=== PATIENT | male | born 1965 | race Two or more races ===

== ENCOUNTER 2024-09-29 10:03 | Emergency (ER) | payer MEDICAID, SELFPAY ==
[2024-09-29 10:05] VITALS: BMI 38.0
[2024-09-29 10:25] VITALS: BP 164/76; PULSE 68; RESP 18; TEMP 36.8; O2SAT 99
--- NOTE | 2024-09-29 10:37 | XR_ITS ---
Examination: Left elbow 3 views Technique: Elbow AP, oblique, lateral 3 views Exam date and time: September 29, 2024 1112 hrs. Indications: Injury to the elbow 3 weeks ago with elbow pain. Findings: No acute fracture No dislocation No foreign body Impression: No acute fracture.
--- NOTE | 2024-09-29 10:37 | XR_ITS ---
Examination: Lumbar spine 3 views Technique one AP lateral coned lateral lower lumbar spine 3 views Exam date and time: September 29, 2024 11:15 AM Indications: Low back pain beginning 3 weeks ago Findings: Adequate alignment lumbar vertebral bodies No lumbar fracture Early degenerative disc disease L5-S1 Mild lumbar spondylosis Impression: Early degenerative disc disease L5-S1
--- NOTE | 2024-09-29 10:38 | PD.EDBACK ---
ED Back Injury Pain RME/HPI General Chief Complaint: Back Pain/Injury Stated Complaint: flank pain right x 2 weeks, left arm pain Time Seen by Provider: 09/29/24 10:37 Arrival date/time: 09/29/24 10:03 RME / HPI RME / HPI Narrative: 5-year-old patient presents emergency department with complaint of bilateral flank pain and back pain x 2 weeks. Patient also complains of left elbow pain. 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 Patient states he has pain with flexion of the left elbow. He also states pain to his lower back is worse with flexion and extension of his lumbar spine. He denies numbness and tingling to distal extremity. Related Data Home Medications ?Medication ?Instructions ?Recorded ?Confirmed lisinopril 10 mg tablet 10 mg PO QDAY 11/10/18 02/18/19 Previous Rx's ?Medication ?Instructions ?Recorded dicyclomine 10 mg capsule 10 mg PO BID PRN pain #30 caps 04/23/22 pantoprazole 40 mg tablet,delayed 40 mg PO QDAY #30 tabs 04/23/22 release (Protonix) cyclobenzaprine 10 mg tablet 10 mg PO TID PRN muscle spasm #20 05/02/24 tabs ibuprofen 800 mg tablet 800 mg PO TID PRN pain #30 tabs 05/02/24 ibuprofen 800 mg tablet 800 mg PO TID #30 tabs 09/29/24 Allergies Allergy/AdvReac Type Severity Reaction Status Date / Time Iodine and Iodide Containing Allergy Severe Swelling Verified 08/26/23 10:40 Produc of Lip/Tongue/Throat Review of Systems Review of Systems Systems Reviewed: All systems reviewed, normal except as documented Constitutional Constitutional: Reports system reviewed and no additional complaints, except as documented Cardiovascular Cardiovascular: Reports system reviewed and no additional complaints, except as documented Respiratory Respiratory: Reports system reviewed and no additional complaints, except as documented Gastrointestinal Gastrointestinal: Reports system reviewed and no additional complaints, except as documented Musculoskeletal Musculoskeletal: Reports system reviewed and no additional complaints, except as documented, Reports arthralgias, Reports back pain and Denies limited range of motion Neurologic Neurologic: Reports system reviewed and no additional complaints, except as documented Psychiatric Psychiatric: Reports system reviewed and no additional complaints, except as documented ED Exam General General appearance: Present alert and in no apparent distress Head Head exam: Present atraumatic and normocephalic Eye Eye exam: Present normal appearance and PERRL ENT ENT exam: Present normal exam and normal oropharynx Neck Neck exam: Present normal inspection and full ROM Respiratory Respiratory exam: Present normal lung sounds bilaterally Expanded Upper Extremity Exam Elbow exam: Present normal inspection, full ROM and tenderness over radial head; Absent pain w/ pronation/supination Back Exam Back exam: Present paraspinal tenderness and vertebral tenderness Neurological Exam Neurological exam: Present alert and oriented X3 Psychiatric Psychiatric exam: Present normal affect and normal mood Course Quality Measures none Orders Category Date Time Status XR elbow comp LT min 3V Stat Exams 09/29/24 10:37 Completed XR lumbar spine 2-3V Stat Exams 09/29/24 10:37 Completed HYDROcodone/APAP 10/325 [[place] 10/325] Med 09/29/24 10:37 Discontinued 1 tab PO X1 ONE Ibuprofen Tab [Motrin Tab] Med 09/29/24 10:37 Discontinued 800 mg PO X1 ONE Vital Signs Vital signs: Vital Signs Temperature 98.3 F 09/29/24 10:25 Pulse Rate 68 09/29/24 10:25 Respiratory Rate 18 09/29/24 10:25 Blood Pressure 164/76 H 09/29/24 10:25 Pulse Oximetry (%) 99 09/29/24 10:25 Oxygen Delivery Method Room Air 09/29/24 10:25 Back Pain / Injury MDM Narrative MDM Narrative:: 59-year-old patient presents emergency department complaint of low back pain. Patient denies numbness and tingling to bilateral lower extremities patient denies bowel or bladder dysfunction. Patient also complains of left medial elbow pain status post an object falling on his elbow causing pain. Pain is worse with palpation and movement of the left elbow x-ray was negative for fractures likely sprain patient stable to [place] Patient data External records reviewed:: None Clinical information provided by:: patient Social determinants that could affect healthcare access:: none Patient has the following chronic illnesses:: na How is presenting disease/condition affected by chronic disease/condition?: no chronic disease Evaluation data The following diagnostics were reviewed and interpreted by me:: radiology exam(s) Lab and/or radiology exams considered but not ordered:: Radiology exam considered and ordered Interpretation Summary: No fractures noted to lumbar and left elbow Medications / Prescriptions Medications or Prescriptions considered but not ordered:: considered and ordered Medication administrations:: Medication Administration History Discontinued Medications Hydrocodone Bitart/Acetaminophen (Hydrocodone/Apap 10/325 Tab) 1 tab PO X1 ONE Stop: 09/29/24 10:38 Last Admin: 09/29/24 10:49 Dose: 1 tab Documented By: ED Ibuprofen (Ibuprofen Tab 400 Mg Tablet) 800 mg PO X1 ONE Stop: 09/29/24 10:38 Last Admin: 09/29/24 10:49 Dose: 800 mg Documented By: ED PER ABOVE Consultations Consultation(s) initiated? (list below): No Diagnosis Differential diagnosis back pain/injury: lumbar radiculopathy, strain of lumbar region and thoracic back pain Most likely diagnosis given after review of the tests above:: Lumbar sprain, elbow sprain, elbow contusion Admission Indicated Admission indicated?: not indicated Explain why admission is indicated or not indicated:: na Admission Request Was there a request for admission?: No Disposition Plan Disposition Plan: Discharge Discharge Attestation Discharge Attestation: The patient and all family members were given an opportunity to ask questions and understood the discharge instructions. Discharge instructions specifically effects, indications for sooner follow up or return to the emergency department, and the expected course of current diagnosis. Patient condition: Stable Discharge Plan Plan Patient Disposition: HOME (Self Care) Prescriptions/Referrals Prescriptions/Med Rec: New ibuprofen 800 mg tablet 800 mg PO TID Qty: 30 0RF No Action lisinopril 10 mg Tablet 10 mg PO QDAY dicyclomine 10 mg capsule 10 mg PO BID PRN (Reason: pain) Qty: 30 0RF pantoprazole [Protonix] 40 mg tablet,delayed release (DR/EC) 40 mg PO QDAY Qty: 30 0RF ibuprofen 800 mg tablet 800 mg PO TID PRN (Reason: pain) Qty: 30 0RF cyclobenzaprine 10 mg tablet 10 mg PO TID PRN (Reason: muscle spasm) Qty: 20 0RF Referrals: Sunitha Aviles FNP [Primary Care Provider] - In 1 week Problem List Clinical Impression: Low back pain, Strain of lumbar region, Radial collateral ligament sprain of left elbow, sequela Patient/Caregiver Discharge Instructions Education Materials: Treating?Strains and Sprains, ED Back Sprain/Strain, ED Sprain, Elbow Print Language: Lithuanian Stand Alone Forms: Katty Award Info., Patient Portal Info Letter
[2024-09-29] MEDS: IBUPROFEN TAB 400 MG TABLET 800 MG PO (10:49)
[2024-09-29] MEDS: HYDROcodone/APAP 10/325 TAB PO (10:49)
[2024-09-29 12:18] VITALS: BP 156/68; PULSE 61; RESP 16; TEMP 37.1; O2SAT 98
== END 2024-09-29 16:20 | disposition home or self-care (01) ==
PROVIDERS: Emergency Provider Emergency Medicine; PCP Nurse Practitioner Family
DX: S39.012A Strain of muscle, fascia and tendon of lower back, initial encounter (principal); S53.432A Radial collateral ligament sprain of left elbow, initial encounter; W20.8XXA Other cause of strike by thrown, projected or falling object, initial encounter
CPT/HCPCS: 72100; 73080; 99283; A9270